=== PATIENT | female | born 1970 | race Native Hawaiian/Other Pacific Islander ===

== ENCOUNTER 2016-04-29 13:05 | Outpatient (CLI) | payer OTHER | END 2016-04-29 14:05 | disposition home or self-care (01) | LOC: MAMMO 13:05 | DX: Z85.3 Personal history of malignant neoplasm of breast (principal); Z90.12 Acquired absence of left breast and nipple | CPT/HCPCS: 77051; G0206-TC ==

== ENCOUNTER 2016-12-23 08:20 | Outpatient (CLI) | payer OTHER | END 2016-12-23 18:58 | disposition home or self-care (01) | LOC: US 08:20 → MAMMO 11:30 → US 18:58 | DX: N63 Unspecified lump in breast (principal); Z85.3 Personal history of malignant neoplasm of breast ==

== ENCOUNTER 2017-09-13 09:58 | Outpatient (CLI) | payer OTHER | END 2017-09-13 18:18 | disposition home or self-care (01) | LOC: MAMMO 09:58 | DX: C50.512 Malignant neoplasm of lower-outer quadrant of left female breast (principal) ==

== ENCOUNTER 2017-12-02 08:07 | Outpatient (CLI) | payer OTHER | END 2017-12-02 19:50 | disposition home or self-care (01) | LOC: RAD 08:07 | DX: Z78.0 Asymptomatic menopausal state (principal) ==

== ENCOUNTER 2018-11-24 14:06 | Outpatient (CLI) | payer OTHER | END 2018-11-24 21:47 | disposition home or self-care (01) | LOC: MAMMO 14:06 | DX: C50.512 Malignant neoplasm of lower-outer quadrant of left female breast (principal); N64.4 Mastodynia ==

== ENCOUNTER 2019-01-12 12:56 | Outpatient (CLI) | payer OTHER | END 2019-01-12 19:22 | disposition home or self-care (01) | LOC: RAD 12:56 | DX: M25.531 Pain in right wrist (principal) ==

== ENCOUNTER 2020-01-02 10:49 | Outpatient (CLI) | payer OTHER | END 2020-01-02 23:26 | disposition home or self-care (01) | LOC: MAMMO 10:49 | DX: Z85.3 Personal history of malignant neoplasm of breast (principal) | CPT/HCPCS: G0279 ==

== ENCOUNTER 2020-01-10 09:00 | Outpatient (CLI) | payer OTHER | END 2020-01-10 23:34 | disposition home or self-care (01) | LOC: US 09:00 | DX: N64.89 Other specified disorders of breast (principal) ==

== ENCOUNTER 2020-10-30 15:39 | Emergency (ER) | payer OTHER ==
[~2020-10-30] VITALS: Ht 157.5 cm; Wt 93.0 kg
[2020-10-30 16:51] LABS: PLATELET COUNT 164 K/uL (152-353); POTASSIUM 4.3 mmol/L (3.6-5.2)
[2020-10-30 18:15] VITALS: BP 138/73; TEMP 99
== END 2020-10-30 18:15 | disposition home or self-care (01) ==
LOC: ED 15:39
PROVIDERS: Family Medicine
DX: B34.9 Viral infection, unspecified (principal)
CPT/HCPCS: 80053; 81000; 85027; 96372; 99283; J1885